=== PATIENT | female | born 1950 | race Caucasian/White ===

== ENCOUNTER → 2018-04-15 | Outpatient (CLI) | payer BC ==
[~2018-04-15] MED LIST: AUG875 PO; IBUP400T13 PO; LIPITOR; LOR5 PO; PRAV40TA78 PO; VEN375 PO
--- NOTE | 2018-04-15 11:46 | RADIOLOGY IMAGING REPORT ---
FACILITY: [facility] - [place] PATIENT NAME: Lolita Guillen : 1950 MR: [id number] V: [id number] EXAM DATE: ORDERING PHYSICIAN: LETY STRONG TECHNOLOGIST: Location: [facility] Patient: Lolita Guillen : 1950 Visit/Account:[id number] Date of Sevice: 04/15/2018 DEXA Scan Clinical history: Osteopenia. Comparison: DEXA scan from 03/24/2016. LUMBAR SPINE: The bone mineral density (BMD) measured from L1-L4 correlates with a Z-score of 1.9 and a T-score of 0.1 which is Normal as defined by the World Health Organization. The corresponding risk of fracture in the lumbar spine is Not increased compared with a young adult reference population. This value basilio s increased by 2.2 % since the prior study. More than 5% change is considered significant. HIP: Bone mineral density (BMD) measured in the LEFT total hip region correlates with a Z-score -0.5 and a T-score of x2 which is osteopenia as defined by the World Health Organization. The corresponding ri sk of fracture in the hip is 4 times increased compared to a young adult reference population. This v alue has increased by 2.2 % since the prior study. More than 5% change is considered significant. T score left femoral neck -1.6 Bone mineral density (BMD) measured in the Femoral Neck region measures 0.810 g/cm?. IMPRESSION: 1. Lumbar spine: Normal. There has been 2.2% increase in the bone mineral density since the previou s exam. 2. Left Total Hip: Osteopenia. There has been 2.2% increase in the bone mineral density since the p revious exam. 3. Femoral Neck: Bone Mineral Density is 0.810 g/cm? The next DEXA scan of this patient should include the following sites: L1-L4 and the left hip. FRAX? WHO Fracture Risk Assessment Tool link: <http://www.shef.ac.uk/FRAX/tool.jsp?locationValue=9> PLEASE NOTE: 1) The World Health Organization defines low BMD as follows: T-score Normal > -1 Osteopenia < -1 and > -2.5 Osteoporosis < -2.5 without fractures Established osteoporosis < -2.5 with fractures 2) In general, you may wish to consider: Diagnosis Treatment Follow-up DEXA Normal BMD Prevention 2-3 years Osteopenia Prevention/therapy 1-2 years Osteoporosis Therapy Yearly 3) Fracture risk estimated from the T-score is more accurate for vertebral fractures (often spontane ous) than for hip fractures. Report Dictated By: Emily Anderson MD at 04/15/2018 11:39 AM Report E-Signed By: Emily Anderson MD at 04/15/2018 11:41 AM WSN:[email or web address]
--- NOTE | 2018-04-18 10:23 | RADIOLOGY IMAGING REPORT ---
[place] [facility] [place]IENT NAME: CARLOS ARZOLA : [id number] MR: [id number] V: [id number] EXAM DATE: ORDERING PHYSICIAN: LETY STRONG TECHNOLOGIST: Sheron Cross PROCEDURE:BILATERAL DIGITAL SCREENING MAMMOGRAM WITH CAD ASSISTED INTERPRETATION & 3D TOMOSYNTHESIS COMPARISON:Prior mammograms 03/24/16, 03/22/15, 02/01/14. INDICATIONS:SCREENING FINDINGS: The breasts are heterogeneously dense which can obscure small masses. The parenchymal pattern has remained stable allowing for difference in mammographic technique & patient positioning. DIAGNOSTIC CATEGORY 1--NEGATIVE. RECOMMENDATIONS: ROUTINE MAMMOGRAM AND CLINICAL EVALUATION. IMPRESSION: BIRADS 1: Negative. No significant abnormality is seen. Dictated by: Emily Anderson M.D. on 04/15/2018 at 13:29 Transcribed by: ROSIE on 04/15/2018 at 13:52 Approved by: Emily Anderson M.D. on 04/18/2018 at 10:22 [facility]
== END ==
LOC: MAMO 04:43
PROVIDERS: ATTEND Nurse Practitioner Family
DX: Z13.820 Encounter for screening for osteoporosis (principal); Z12.31 Encounter for screening mammogram for malignant neoplasm of breast; M85.88 Other specified disorders of bone density and structure, other site
CPT/HCPCS: 77063; 77067; 77080